=== PATIENT | female | born 1945 | race Caucasian/White ===

== ENCOUNTER → 2021-12-13 13:46 | Outpatient (REF) | payer MEDICARE, SELFPAY ==
--- NOTE | 2021-12-13 13:51 | CA_ITS ---
Transthoracic Echocardiogram Patient (Last, First, Middle): Brianda Lora, Gender: Female Date of : 1945 Age: 75 Procedure Date: 12/13/2021 Procedure Type: Transthoracic Echocardiogram Location: [facility] Height: 160.02 cm Weight: 70.31 kg BSA: 1.74 m2 Heart Rate: bpm BP: 126 / 72 mmHg Operator Assistant I Cementing: SB Referring MD: Winnie Rascon MD Symptoms: DYSPNEA ON EXERTION Study Quality: Adequate ECG Rhythm: Sinus Conclusions: - The left ventricular systolic function is normal. The calculated ejection fraction is 58% by biplane method. - There is mild calcification of the aortic valve. - Trace to mild aortic regurgitation. - Tip of the anterior leaflet appears flail in some views, but minimal. Findings Left Ventricle Normal left ventricular cavity size. There is normal left ventricular wall thickness. The left ventricular systolic function is normal. The calculated ejection fraction is 58% by biplane method. There is no evidence of regional wall motion abnormalities. Diastolic function is normal for age. Right Ventricle Normal right ventricular cavity size and systolic function. Atria Both atria are normal in size. Aortic Valve There is a normal trileaflet aortic valve. There is mild calcification of the aortic valve. There is no aortic valve stenosis. Trace to mild aortic regurgitation. Mitral Valve There is mild anterior mitral leaflet thickening. There is mild mitral annular calcification. There is trace mitral valve regurgitation. There is no mitral valve stenosis. Tip of the anterior leaflet appears flail in some views, but minimal. Pulmonic Valve The pulmonic valve was not well visualized. Tricuspid Valve Normal tricuspid valve structure. There is mild tricuspid valve regurgitation. The pulmonary artery systolic pressure is normal. Great Vessels The aortic annulus, sinuses of valsalva, and asc aorta are normal in size. Venous The inferior vena cava is normal in size and collapses greater than 50% with inspiration. Pericardium/Pleural There is no evidence of pericardial effusion. Prior Study Comparison No prior study available for comparison. Measurements 2D Linear Measurements IVSd: 0.66 0.6-0.9/0.6-1.0 cm LVIDd: 4.86 3.9-5.3/4.2-5.9 cm LVIDd Index: 2.79 2.4-3.2/2.2-3.1 cm/m2 LVIDs: 2.99 2.0-3.6 cm LVPWd: 0.54 0.7-1.1 cm LA Diam: 2.70 2.7-3.8/3.0-4.0 cm LAIDs Index: 1.55 1.5-2.3 cm/m2 LV Mass: 112.98 67-162/88-224 g LV Mass Index: 64.93 43-95/49-115 g/m2 LVOT Diam: 2.10 3.0+(-)1.3 cm 2D Systolic Function EF 4C: 60.80 >55% EF 2C: 54.30 >55% EF BiP: 57.60 >55% Mitral Valve MV Pk E: 0.81 MV PK A: 0.67 MV Decel Time: 144.00 E/A: 1.20 E'Lateral: 7.51 E'Medial: 6.31 E/E' Med: 12.80 E/E' Lat: 10.80 PHT: 42.00 MVA PHT: 5.24 Decel Pondera: 5.64 Aortic Valve AoV Pk Prieto: 1.41 AoV Mn Prieto: 0.95 AoV VTI: 0.30 AoV Pk Grad: 8.00 Aov Mn Grad: 4.00 LIZETH Cont.VTI: 2.51 AI Pk Prieto: 4.70 AI Pondera: 3.35 LVOT LVOT Pk Prieto: 0.95 LVOT Mn Prieto: 0.67 LVOT VTI: 0.21 LVOT Pk Grad: 4.00 LVOT Mn Grad: 2.00 LVOT Diam: 2.10 LVOT Area: 3.46 Diastolic Function MV Pk E: 0.81 MV Pk A: 0.67 E/A: 1.20 E'Medial: 6.31 E/E' Med: 12.80 E' Laterial: 7.51 E/E' Lat: 10.80 Right Ventricle TAPSE (mm): 25.70 TVS' Prieto: 15.50 Tricuspid Valve TR Pk Prieto: 2.69 TR Pk Grad: 29.00 RA Press: 3.00 RVSP: 32.00 Great Vessels Aorta Sinus of Valsalva: 2.80 2.0-3.5 cm Ao Asc: 3.00 2.1-3.4 cm Pulmonary Veins Pulm Vein S/D 1.20 Pulmonary Valve PV Pk Prieto: 0.78 Peak PV Grad: 2.00 Updated in Other Vendor System with Status of Final Sai Betts MD electronically signed on 12/14/2021 12:28:39 PM with status of Final
== END ==
LOC: HO.CARD 13:46
PROVIDERS: Visit Provider Internal Medicine
DX: R06.00 Dyspnea, unspecified (principal)
CPT/HCPCS: 93306